=== PATIENT | female | born 1955 | race Caucasian/White ===

== ENCOUNTER 2020-12-03 20:52 | Emergency (ER) | payer OTHER ==
[2020-12-03] MEDS ORDERED: Cyclobenzaprine 10 MG Tab PO ONE (20:53)
[2020-12-03 22:26] LABS: ANION GAP 13.6 mEq/L (7-13); CHLORIDE,CL 104 mmol/L (98-107); SODIUM,NA 142 mmol/L (136-145)
--- NOTE | 2020-12-03 22:44 | CT ---
PROCEDURE INFORMATION: Exam: CT Head Without Contrast Exam date and time: 12/03/2020 10:15 PM Age: 65 years old Clinical indication: Other: Headache; Additional info: New onset headache TECHNIQUE: Imaging protocol: Computed tomography of the head without contrast. Radiation optimization: All CT scans at this facility use at least one of these dose optimization techniques: automated exposure control; mA and/or kV adjustment per patient size (includes targeted exams where dose is matched to clinical indication); or iterative reconstruction. COMPARISON: No relevant prior studies available. FINDINGS: Brain: Normal. No hemorrhage. Unremarkable white matter. No mass effect. Cerebral ventricles: No ventriculomegaly. Paranasal sinuses: Visualized sinuses are unremarkable. No fluid levels. Mastoid air cells: Visualized mastoid air cells are well aerated. Bones/joints: Unremarkable. No acute fracture. Soft tissues: Unremarkable. IMPRESSION: No acute intracranial abnormality.
--- NOTE | 2020-12-03 23:34 | EDM.PDOC ---
ED HPI GENERAL MEDICAL PROBLEM - General Chief Complaint: Headache Stated Complaint: HEADACHE IN BACK OF HEAD Time Seen by Provider: 12/03/20 21:45 Source of Information: Reports: Patient History Limitations: Reports: No Limitations - History of Present Illness INITIAL COMMENTS - FREE TEXT/NARRATIVE: new onset headache to back of head today, right side No nausea or vomiting. r adiates forward. no light sensitivity, pain worse if turning head. No fever, or chills. daily etoh use. no injury Headache Pain Score (Numeric/FACES): 7 Past Medical History Cardiovascular History: Reports: Other (See Below) Other Cardiovascular History: mitral valve prolapse Gastrointestinal History: Reports: Diverticulosis - Infectious Disease History Infectious Disease History: Reports: MRSA - Past Surgical History Female Surgical History: Reports: Hysterectomy Musculoskeletal Surgical History: Reports: Carpal Tunnel Social & Family History - Tobacco Use Tobacco Use Status *Q: Never Tobacco User Second Hand Smoke Exposure: No - Recreational Drug Use Recreational Drug Use: No ED ROS GENERAL - Review of Systems Review Of Systems: Comprehensive ROS is negative, except as noted in HPI. - Physical Exam Exam: See Below Exam Limited By: No Limitations General Appearance: Alert, Mild Distress Eye Exam: Bilateral Eye: Conjunctival Injection, EOMI, PERRL Ears: Normal External Exam, Hearing Grossly Normal, Normal TMs Nose: Normal Inspection Throat/Mouth: Normal Inspection Head Exam: Atraumatic, Normocephalic Neck: Full Range of Motion (pain with turning to right), Tender Lateral (right occipital ). No: Lymphadenopathy (L), Lymphadenopathy (R), Tender Midline, Thyromegaly Respiratory/Chest: No Respiratory Distress, Lungs Clear, Normal Breath Sounds Cardiovascular: Normal Peripheral Pulses, Regular Rate, Rhythm GI/Abdominal: Normal Bowel Sounds Neuro Exam (Abbreviated): Alert, Oriented, CN II-XII Intact, Normal Cognition, Normal Gait, No Motor/Sensory Deficits Extremities: Normal Inspection Psychiatric: Normal Affect, Anxious Skin Exam: Warm, Dry, Intact, Normal Color, No Rash Course - Vital Signs Last Recorded V/S: Last Vital Signs Temp 98.2 F 12/03/20 21:35 Pulse 86 12/03/20 21:35 Resp 18 12/03/20 21:35 BP 163/80 H 12/03/20 21:35 Pulse Ox 97 12/03/20 21:35 - Orders/Labs/Meds Labs: Laboratory Tests 12/03/20 12/03/20 12/03/20 Range/Units 22:00 22:00 22:00 WBC 8.3 (5.0-10.0) 10^3/uL RBC 4.53 (4.2-5.4) 10^6/uL Hgb 14.1 (12.0-16.0) g/dL Hct 42.3 (37.0-47.0) % MCV 93.4 (80-100) fL MCH 31.1 (27.0-34.0) pg MCHC 33.3 (33.0-35.0) g/dL Plt Count 196 (150-450) 10^3/uL Neut % (Auto) 67.6 (42.2-75.2) % Lymph % (Auto) 20.0 L (20.5-50.1) % [place] % (Auto) 8.8 H (2-8) % Eos % (Auto) 2.9 (1.0-3.0) % Baso % (Auto) 0.7 (0.0-1.0) % Sodium 142 (136-145) mmol/L Potassium 4.6 (3.5-5.1) mmol/L Chloride 104 (98-107) mmol/L Carbon Dioxide 29 (21-32) mmol/L Anion Gap 13.6 H (7-13) mEq/L BUN 22 H (7-18) mg/dL Creatinine 0.66 (0.55-1.02) mg/dL Est Cr Clr Drug Dosing 68.11 mL/min Estimated GFR (MDRD) > 60 BUN/Creatinine Ratio 33.3 (No establ ref range) Glucose 116 H (70-99) mg/dL Lactic Acid 1.1 (0.4-2.0) mmol/L Calcium 9.0 (8.5-10.1) mg/dL Total Bilirubin 0.6 (0.2-1.0) mg/dL AST 51 H (15-37) U/L ALT 61 H (14-59) U/L Alkaline Phosphatase 156 H (46-116) U/L Total Protein 7.8 (6.4-8.2) g/dL Albumin 4.0 (3.4-5.0) g/dL Globulin 3.8 Albumin/Globulin Ratio 1.1 Meds: Medications Discontinued Medications Generic Name Dose Route Start Last Admin Trade Name Obed PRN Reason Stop Dose Admin Cyclobenzaprine HCl Confirm 12/04/20 00:32 12/04/20 00:37 Cyclobenzaprine 10 Mg Tab Administered 12/04/20 00:33 Not Given Dose 10 mg .ROUTE .STK-MED ONE Departure - Departure Time of Disposition: 00:24 Disposition: Home, Self-Care 01 Condition: Good Clinical Impression: Torticollis Headache Qualifiers: Headache type: other headache syndrome Qualified Code(s): G44.89 - Other headache syndrome - Discharge Information *PRESCRIPTION DRUG MONITORING PROGRAM REVIEWED*: No *COPY OF PRESCRIPTION DRUG MONITORING REPORT IN PATIENT JOHN: No Instructions: Acute Torticollis, Adult Forms: ED Department Discharge Additional Instructions: tylenol 500mg every 4 hours as needed for discomfort icy hot type product per labe instructions flexeril 10mg 1/2 tablet - one tablet every 8 hours as needed for spasm type pain clinic follow up sunday if not improving Sepsis Event Note (ED) - Focused Exam Vital Signs: Vital Signs Temp Pulse Resp BP Pulse Ox 12/03/20 21:35 98.2 F 86 18 163/80 H 97
[2020-12-04] MEDS ORDERED: Cyclobenzaprine 10 MG Tab ONE (00:32)
== END 2020-12-04 00:38 | disposition home or self-care (01) ==
LOC: DL.ED 20:52
DX: G44.89 Other headache syndrome (principal); M43.6 Torticollis
CPT/HCPCS: 36415; 70450; 80053; 83605; 85025; 99284; A9270